=== PATIENT | male | born 1945 | race Caucasian/White ===

== ENCOUNTER 2018-12-19 07:00 | Day surgery (SDC) | payer OTHER ==
[~2018-12-19] VITALS: Ht 188 cm; Wt 97.5 kg
[~2018-12-19 07:00] MED LIST: GAS RELIEF125 MG PO
[2018-12-19] MEDS ORDERED: POLY119PG PO (07:26)
[2018-12-19] MEDS ORDERED: SURFAK240 M1 PO (07:26)
[2018-12-19] MEDS ORDERED: ULTRACET PO (07:27)
[2018-12-19] MEDS ORDERED: NEURONTIN800 MG PO (07:27)
== END 2018-12-19 11:56 | disposition home or self-care (01) ==
LOC: CIR.AMB 07:00 → SURH 07:00 → EDSTATUS 09:30 → CIR.AMB 09:30 → O/R 13:00
DX: K40.20 Bilateral inguinal hernia, without obstruction or gangrene, not specified as recurrent (principal); K43.2 Incisional hernia without obstruction or gangrene; N39.498 Other specified urinary incontinence; N32.81 Overactive bladder
CPT/HCPCS: 53440; 15734; 49505; 49560; C1771